=== PATIENT | male | born 1990 | race Caucasian/White ===

== ENCOUNTER 2018-09-15 15:52 | Inpatient (IN) | payer OTHER ==
[~2018-09-15] VITALS: Ht 165.1 cm; Wt 69.4 kg
[2018-09-15 16:10] VITALS: BP_SYST 121
[2018-09-15 16:47] LABS: CALCIUM 7.7 mg/dL (8.4-11.0); CREATININE 0.98 mg/dL (0.55-1.30)
[2018-09-15] MEDS ORDERED: NACL 0.9% 1,000 ML IV ONE (17:00)
[2018-09-15 17:04] LABS: CALCIUM 7.8 mg/dL (8.4-11.0); CREATININE 0.85 mg/dL (0.55-1.30); POTASSIUM 4.9 mmol/L (3.5-5.1)
[2018-09-15 17:08] LABS: ALBUMIN 1.8 g/dL (3.4-4.8); RED BLOOD CELL COUNT(AUTO) 3.95 MIL/uL (4.2-6.2); TOTAL BILIRUBIN 1.8 mg/dL (0.0-1.0); WHITE BLOOD COUNT (AUTO) 8.6 K/uL (4.8-10.8)
[2018-09-15 17:09] LABS: BASOPHILS # (AUTO) 0.1 K/uL (0.0-0.2); BASOPHILS % (AUTO) 0.9 % (0.0-2.0); EOSINOPHILS # (AUTO) 0.1 K/uL (0.0-0.4); EOSINOPHILS % (AUTO) 0.8 % (0.0-4.0); HEMATOCRIT 38.2 % (36-54); HEMOGLOBIN 13.4 g/dL (14.0-18.0); LYMPHOCYTES # (AUTO) 0.7 K/uL (1.0-5.5); LYMPHOCYTES % (AUTO) 8.6 % (20.5-51.5); MEAN CORPUSCULAR HEMOGLOBIN 34 pg (27-31); MEAN CORPUSCULAR HGB CONC 35 % (32-36); MEAN CORPUSCULAR VOLUME 97 fL (79.0-98.0); MONOCYTES % (AUTO) 11.3 % (1.7-9.3); NEUTROPHILS # (AUTO) 6.8 K/uL (1.8-7.7); NEUTROPHILS % (AUTO) 78.4 % (40.0-70.0); PLATELET COUNT (AUTO) 296 K/uL (130-430); RED CELL DISTRIBUTION WIDTH 15.2 % (9.0-15.0)
[2018-09-15] MEDS ORDERED: SODIUM CHLORIDE 3% *HI-ALERT* 300 ML IV ONE (17:45)
[2018-09-15] MEDS ORDERED: INSU100V9 SQ (17:49)
[2018-09-15] MEDS ORDERED: FURO40TA5 PO (17:49)
[2018-09-15] MEDS ORDERED: URSO300C24 PO (17:49)
[2018-09-15] MEDS ORDERED: INSU100V SQ ×2 (17:49)
[2018-09-15] MEDS ORDERED: SPIR50TA5 PO (17:49)
[2018-09-15 18:32] VITALS: BP_SYST 108
[2018-09-15 19:13] VITALS: BP_SYST 106
[2018-09-15 20:00] VITALS: BP_SYST 98
[2018-09-15] MEDS: INSULIN REGULAR, HUMAN 100 UNITS/ML, 10 ML VIAL (novoLIN R) SUBCUT PRN (20:46)
[2018-09-15] MEDS ORDERED: SPIRONOLACTONE 50 MG TABLET (ALDACTONE) PO SCH (23:15)
[2018-09-15] MEDS ORDERED: FUROSEMIDE 40 MG TABLET PO SCH (23:15)
[2018-09-15] MEDS ORDERED: FUROSEMIDE 40 MG TABLET ONE (23:55)
[2018-09-15] MEDS ORDERED: SPIRONOLACTONE 50 MG TABLET (ALDACTONE) ONE (23:57)
[2018-09-16 01:47] VITALS: BP_SYST 109
[2018-09-16] MEDS: INSULIN REGULAR, HUMAN 100 UNITS/ML, 10 ML VIAL (novoLIN R) SUBCUT PRN ×4 (06:42→20:08)
[2018-09-16 07:12] LABS: INR 1.2 (0.80-1.20); PROTHROMBIN TIME 12.1 SECS (9.5-12.5)
[2018-09-16 07:16] LABS: BASOPHILS % (AUTO) 0.3 % (0.0-2.0); EOSINOPHILS # (AUTO) 0.1 K/uL (0.0-0.4); EOSINOPHILS % (AUTO) 1.2 % (0.0-4.0); HEMATOCRIT 32.7 % (36-54); LYMPHOCYTES % (AUTO) 14.2 % (20.5-51.5); MEAN CORPUSCULAR HEMOGLOBIN 32 pg (27-31); MEAN CORPUSCULAR HGB CONC 34 % (32-36); MEAN CORPUSCULAR VOLUME 96 fL (79.0-98.0); MONOCYTES # (AUTO) 0.9 K/uL (0.0-1.0); MONOCYTES % (AUTO) 12.8 % (1.7-9.3); NEUTROPHILS # (AUTO) 4.8 K/uL (1.8-7.7); NEUTROPHILS % (AUTO) 71.5 % (40.0-70.0); PLATELET COUNT (AUTO) 223 K/uL (130-430); RED BLOOD CELL COUNT(AUTO) 3.41 MIL/uL (4.2-6.2); RED CELL DISTRIBUTION WIDTH 14.7 % (9.0-15.0); WHITE BLOOD COUNT (AUTO) 6.8 K/uL (4.8-10.8)
[2018-09-16 07:32] LABS: ALBUMIN 1.4 g/dL (3.4-4.8); CALCIUM 7.3 mg/dL (8.4-11.0); CREATININE 0.72 mg/dL (0.55-1.30); FREE T4 (FREE THYROXINE) 0.8 ng/dL (0.6-1.6); POTASSIUM 4.5 mmol/L (3.5-5.1); THYROID STIMULATING HORMONE 4.36 uIu/mL (0.34-4.82); TOTAL BILIRUBIN 1.8 mg/dL (0.0-1.0)
[2018-09-16 08:56] VITALS: BP_SYST 101
[2018-09-16] MEDS: SPIRONOLACTONE 50 MG TABLET (ALDACTONE) PO SCH ×2 (09:03→20:03)
[2018-09-16] MEDS: FUROSEMIDE 40 MG TABLET PO SCH (09:03)
[2018-09-16] MEDS: URSODIOL 300 MG CAPSULE PO SCH ×2 (09:04→20:02)
[2018-09-16 09:08] LABS: INR 1.2 (0.80-1.20); PROTHROMBIN TIME 12.1 SECS (9.5-12.5)
[2018-09-16 09:37] LABS: TOTAL IRON BIND. CAPACITY 122 ug/dL (250-450)
[2018-09-16 09:57] LABS: BODY FLUID SOURCE/ TYPE ASCITES; SOURCE/TYPE ,BODY FLUID ASCITES
[2018-09-16 09:58] LABS: BF APPEARANCE UNSPUN CLOUDY (CLEAR); BODY FLUID COLOR YELLOW (LT YELLOW); BODY FLUID TOTAL VOLUME 3200 mL
[2018-09-16] MEDS ORDERED: SODIUM CHLORIDE 3% *HI-ALERT* 300 ML IV ONE (10:15)
[2018-09-16 11:49] LABS: RBC, BODY FLUID 173 /uL; WBC, BODY FLUID 26 /uL
[2018-09-16 11:51] LABS: EOSINOPHIL, BODY FLUID 2 %; LYMPHOCYTES, BODY FLUID 54 %; MONOCYTES,BODY FLUID 44 %; NEUTROPHIL, BODY FLUID 0 %
[2018-09-16 12:05] VITALS: BP_SYST 104
[2018-09-16 16:01] VITALS: BP_SYST 105
[2018-09-16 18:06] LABS: BODY FLUID GLUCOSE 185 mg/dL
[2018-09-16 20:00] VITALS: BP_SYST 92
[2018-09-16 23:45] VITALS: BP_SYST 98
[2018-09-17 07:38] LABS: ALBUMIN 1.6 g/dL (3.4-4.8); CALCIUM 7.5 mg/dL (8.4-11.0); CREATININE 0.74 mg/dL (0.55-1.30); POTASSIUM 4.7 mmol/L (3.5-5.1); TOTAL BILIRUBIN 1.9 mg/dL (0.0-1.0)
[2018-09-17 07:40] LABS: BASOPHILS % (AUTO) 0.3 % (0.0-2.0); EOSINOPHILS % (AUTO) 0.3 % (0.0-4.0); HEMATOCRIT 33.2 % (36-54); HEMOGLOBIN 11.9 g/dL (14.0-18.0); LYMPHOCYTES # (AUTO) 1.2 K/uL (1.0-5.5); LYMPHOCYTES % (AUTO) 11.2 % (20.5-51.5); MEAN CORPUSCULAR HEMOGLOBIN 34 pg (27-31); MEAN CORPUSCULAR HGB CONC 36 % (32-36); MEAN CORPUSCULAR VOLUME 95 fL (79.0-98.0); MONOCYTES # (AUTO) 1.3 K/uL (0.0-1.0); MONOCYTES % (AUTO) 12.5 % (1.7-9.3); NEUTROPHILS # (AUTO) 7.8 K/uL (1.8-7.7); NEUTROPHILS % (AUTO) 75.7 % (40.0-70.0); PLATELET COUNT (AUTO) 298 K/uL (130-430); RED BLOOD CELL COUNT(AUTO) 3.49 MIL/uL (4.2-6.2); RED CELL DISTRIBUTION WIDTH 14.9 % (9.0-15.0); WHITE BLOOD COUNT (AUTO) 10.3 K/uL (4.8-10.8)
[2018-09-17 08:03] VITALS: BP_SYST 96
[2018-09-17 08:09] LABS: AFP, TUMOR MARKER 1.6 ng/mL (0.0-8.3)
[2018-09-17] MEDS: URSODIOL 300 MG CAPSULE PO SCH (08:28)
[2018-09-17] MEDS: FUROSEMIDE 40 MG TABLET PO SCH (08:29)
[2018-09-17] MEDS: SPIRONOLACTONE 50 MG TABLET (ALDACTONE) PO SCH (08:29)
[2018-09-17 10:07] LABS: HEPATITIS A AB, IgM Negative (Negative); HEPATITIS B CORE AB, IgM Negative (Negative); HEPATITIS B SURFACE AG Negative (Negative)
[2018-09-17 11:07] LABS: FERRITIN 996 ng/mL (30-400)
[2018-09-17] MEDS: INSULIN REGULAR, HUMAN 100 UNITS/ML, 10 ML VIAL (novoLIN R) SUBCUT PRN (11:29)
[2018-09-17] MEDS ORDERED: SODIUM CHLORIDE 500 MG TABLET PO ONE (12:00)
[2018-09-17 13:40] VITALS: BP_SYST 109
[2018-09-17 13:53] VITALS: BP_SYST 109
[2018-09-17] MEDS ORDERED: SODIUM CHLORIDE 500 MG TABLET PO SCH (15:00)
[2018-09-17 19:08] LABS: ANTI NUCLEAR AB WITH REFLEX Negative (Negative)
[2018-09-19 05:06] LABS: ALPHA-1-ANTITRYPSIN, S 182 mg/dL (90-200); CERULOPLASMIN 27.2 mg/dL (16.0-31.0)
[2018-09-21 11:01] LABS: ANTI-SMOOTH MUSCLE AB 20 Units (0-19)
== END 2018-09-17 14:55 | disposition home or self-care (01) ==
LOC: SED 15:52 → STU 17:43
PROVIDERS: ADMIT Internal Medicine; ATTEND Internal Medicine
PROC: 0W9G3ZZ Drainage of Peritoneal Cavity, Percutaneous Approach (ICD-10-PCS; principal; 2018-09-16)
DX: K74.60 Unspecified cirrhosis of liver (principal); E43 Unspecified severe protein-calorie malnutrition; R18.8 Other ascites; E87.1 Hypo-osmolality and hyponatremia; K75.9 Inflammatory liver disease, unspecified; H20.9 Unspecified iridocyclitis; E10.9 Type 1 diabetes mellitus without complications; H54.8 Legal blindness, as defined in USA; Z68.25 Body mass index [BMI] 25.0-25.9, adult; Z79.4 Long term (current) use of insulin; Z79.899 Other long term (current) drug therapy
CPT/HCPCS: 36415; 49083; 71045; 76700-TC; 80048; 80053; 80074; 82042; 82103; 82105; 82140-TC; 82390; 82728; 82947-TC; 82962; 83036; 83516; 83540-TC; 83550-TC; 83735-TC; 84157-TC; 84439; 84443-TC; 85025; 85610-TC; 85730-TC; 86038; 89051-TC; 89060-TC; 90656; 93005; 96360; 96361; 99285; C1729; G0378; J1815; J3490; J7030

== ENCOUNTER 2018-10-14 10:24 | Emergency (ER) | payer OTHER ==
[~2018-10-14] VITALS: Ht 165.1 cm; Wt 79.4 kg
[~2018-10-14 10:24] MED LIST: FURO40TA5 PO; INSU100V SQ; INSU100V9 SQ; SPIR50TA5 PO; URSO300C24 PO
[2018-10-14 10:30] VITALS: BP_SYST 111
--- NOTE | 2018-10-14 13:52 | NUR ---
Patient is awake, alert, and oriented x4. Patient states he needs a parencentesis, sharp back pain 10/10, presents with distended abdomen. Patient reports a hisotry of DM, liver cirrhosis, legally blind, paracentesis.
[2018-10-14] MEDS ORDERED: MORPHINE 4 MG/ML INJ. SYRINGE IVP ONE (14:00)
[2018-10-14] MEDS ORDERED: PIPERACILLIN/TAZO 3.38 GM in NS 50 ML IV ONE (14:00)
[2018-10-14] MEDS ORDERED: DIPHENHYDRAMINE INJ 50 MG/ML VIAL IVP ONE (14:00)
[2018-10-14] MEDS ORDERED: PIPERACILLIN/TAZOBACTAM 3.375 GM/VIAL (ZOSYN) IV ONE (14:37)
--- NOTE | 2018-10-14 14:39 | NUR ---
Patient does not wish to proceed with medical care recommended by Dr. Calhoun. Patient given information related to possible complications, up to and including , which could occur as a result of leaving hospital at this time. Patient verbalizes understanding of risks involved leaving against medical advice. Patient has signed AMA form.
[2018-10-14 14:50] LABS: BASOPHILS % (AUTO) 0.5 % (0.0-2.0); EOSINOPHILS % (AUTO) 0.4 % (0.0-4.0); HEMATOCRIT 34.5 % (36-54); HEMOGLOBIN 11.7 g/dL (14.0-18.0); LYMPHOCYTES % (AUTO) 8.6 % (20.5-51.5); MEAN CORPUSCULAR HEMOGLOBIN 35 pg (27-31); MEAN CORPUSCULAR HGB CONC 34 % (32-36); MEAN CORPUSCULAR VOLUME 102 fL (79.0-98.0); MONOCYTES % (AUTO) 14.3 % (1.7-9.3); NEUTROPHILS % (AUTO) 76.2 % (40.0-70.0); PLATELET COUNT (AUTO) 206 K/uL (130-430); RED BLOOD CELL COUNT(AUTO) 3.38 MIL/uL (4.2-6.2); RED CELL DISTRIBUTION WIDTH 15.2 % (9.0-15.0); WHITE BLOOD COUNT (AUTO) 7.8 K/uL (4.8-10.8)
[2018-10-14 14:51] LABS: LYMPHOCYTES # (AUTO) 0.7 K/uL (1.0-5.5); MONOCYTES # (AUTO) 1.1 K/uL (0.0-1.0); NEUTROPHILS # (AUTO) 5.9 K/uL (1.8-7.7)
[2018-10-14 14:53] LABS: CALCIUM 8.1 mg/dL (8.4-11.0); CREATININE 0.98 mg/dL (0.55-1.30); INR 1.3 (0.80-1.20); POTASSIUM 4.2 mmol/L (3.5-5.1); PROTHROMBIN TIME 13.3 SECS (9.5-12.5)
[2018-10-14 14:57] LABS: ALBUMIN 1.7 g/dL (3.4-4.8)
== END 2018-10-14 14:39 | disposition left against medical advice (07) ==
LOC: SED 10:24
DX: R18.8 Other ascites (principal); Z79.4 Long term (current) use of insulin; Z79.899 Other long term (current) drug therapy
CPT/HCPCS: 36415; 80053; 83605; 83690-TC; 85025; 85610-TC; 87040-TC; 99283; J1200; J2270; J2543